=== PATIENT | female | born 1995 | race Two or more races ===

== ENCOUNTER 2023-06-02 11:58 | Emergency (ER) | payer OTHER, SELFPAY ==
--- NOTE | 2023-06-02 12:02 | ED.CHESTPAIN ---
HPI - Chest Pain General Chief Complaint: Chest Pain Stated Complaint: Chest Pain x 1 Day Time Seen by Provider: 06/02/23 14:46 Source: patient and family ( Mother.) Mode of arrival: ambulatory Limitations: no limitations History of Present Illness HPI narrative: 27-year-old female history of spina bifida came in for evaluation of chest pain. Chest pain started since yesterday more than 24 hours ago pain is localized to the left sternal border, no radiation, pain described as intermittent common goes, no clear aggravating factor or relieving factor, pain is 10/10 when it comes, no association with movement or taking a deep breath. No fever, no chills. No coughing, no history of chest trauma, no SOB, no fever, chills. Related Data Allergies Allergy/AdvReac Type Severity Reaction Status Date / Time latex [LATEX] Allergy Unknown RASH Verified 06/02/23 12:05 Review of Systems Review of Systems: All other systems are reviewed and are negative Constitutional: Reports as per HPI and Reports no additional constitutional complaints Eyes: Reports as per HPI and Reports no additional eye complaints Reports system reviewed and no additional complaints, except as documented Cardiovascular: Reports as per HPI and Reports no additional cardiovascular complaints Respiratory: Reports as per HPI and Reports no additional respiratory complaints Gastrointestinal: Reports as per HPI and Reports no additional gastrointestinal complaints Genitourinary: Reports no additional female genitourinary complaints Musculoskeletal: Reports no additional musculoskeletal complaints Skin/Breast: Reports system reviewed and no additional complaints, except as docu Psychiatric: Reports no additional psychiatric complaints Endocrine: Reports no additional endocrine complaints Hematologic/Lymphatic: Reports no additional hematologic/lymphatic complaints Allergic/Immunologic: Reports no additional allergic/immunologic complaints Reports system reviewed and no additional complaints, except as documented and Reports Abnormal speech present [facility] Social History Social History Advance Directives: No Physical Exam Vital Signs: Vital Signs: Last Vital Signs Temp 98.8 F 06/02/23 12:03 Pulse 84 06/02/23 12:03 Resp 18 06/02/23 12:03 BP 142/94 H 06/02/23 12:03 Pulse Ox 100 06/02/23 12:03 O2 Del Method Room Air 06/02/23 12:03 BMI result Body Mass Index 26.8 Vital signs have been reviewed and appear to be correct. Blood pressure elevated. Heart rate normal. Respiratory rate normal. Temperature normal. Oxygen saturation normal. Appearance: Alert. Oriented X3. No acute distress. Head: Normal external exam. Normocephalic. Atraumatic. No [place] signs noted. No raccoon eyes noted Eyes: PERRLA. EOMI. Conjunctiva and sclera normal. Eyelids normal. ENT: TM's Normal. Pharynx normal. Uvula midline. Moist mucous membranes. No trismus noted. No drooling noted. No muffled voice noted. Neck: Normal inspection. Neck supple. FROM. No adenopathy. Thyroid Normal. No meningeal signs. No neck mass noted. CVS: Normal heart rate and rhythm. Heart sound normal. No murmurs noted. Pulses normal throughout. Respiratory: No respiratory distress. Painless inspiration. Breath sounds normal. No wheezes/rales/rhonchi noted. Reproducible tenderness over the left sternal border, no redness, no hotness, no step-off, no deformity No accessory muscle usage noted or decreased air movement noted. Abdomen: Soft and nontender. Bowel sounds normal in all 4 quadrants. No distention noted. No organomegaly noted. No visible injury noted. Back: No CVA tenderness. Full range of motion noted. Skin: Skin warm and dry. Normal skin color. Normal skin turgor. No rashes/lesions/lacerations noted. Extremities: No lower extremity edema. Extremities exhibit normal range of motion. Extremities nontender. Neuro: Oriented X 3. Cranial nerve exam: II-XII are grossly intact No motor deficit. No sensory deficit. Reflexes normal. Course Course Course Narrative: This is an RME: Additional HPI, ROS, PE not included below will be deferred to primary provider. Patient is a 27-year-old female past medical history of spina bifida, hydrocephalus with shunt, presenting to emergency department complaining of midsternal chest pain intermittnetly x 1 day. Pain typically lasts a few hours and then improves. Denies headache, dyspnea, shortness of breath, nausea, vomiting, abdominal pain, numbness or tingling of the extremities. Plan: labs, EKG Reevaluation(s) Reevaluation #1: patient with unremarkable physical exam, EKG/ chest x-ray is also unremarkable with negative troponin physical exam is more consistent with costochondritis. Time: 14:55 Medical Decision Making Differential Diagnosis Differential Diagnoses: The differential diagnosis associated with the presentation includes ( ACS, pulmonary embolism, costochondritis, pleural effusion, pneumothorax , electrolyte abnormality, severe anemia.) Admission/Observation Consideration of admission/observation: Escalation of care including admission/observation considered Lab Data MDM Lab Attestation statement: I reviewed the patient's lab results. 06/02/23 12:22 06/02/23 12:22 Labs: Lab Results 06/02/23 Range/Units 12:22 WBC 6.7 (4.8-10.8) X10*3/uL RBC 4.24 (4.20-5.50) X10*6/uL Hgb 11.4 L (12.0-16.0) g/dl Hct 34.8 L (37.0-47.0) % MCV 82.1 (80.0-98.0) fL MCH 26.9 L (27.0-33.0) pg MCHC 32.8 (31.0-35.0) g/dl RDW 13.8 (11.0-16.0) % Plt Count 279 (160-400) X10*3/uL MPV 11.2 (9.4-12.3) fL Immature Gran % (Auto) 0.4 (0.0-0.4) % Neut % (Auto) 75.3 H (45-73) % Lymph % (Auto) 18.4 L (20-40) % [place] % (Auto) 4.6 (2-11) % Eos % (Auto) 1.0 (0-4) % Baso % (Auto) 0.3 (0-2) % Lymph # (Auto) 1.2 (1.2-4.9) X10*3/uL [place] # (Auto) 0.3 (0.1-1.2) X10*3/uL Eos # (Auto) 0.1 (0.0-0.4) X10*3/uL Baso # (Auto) 0.0 (0.0-0.2) X10*3/uL Abs Immat Gran (auto) 0.03 (0.00-0.03) X10*3/uL Absolute Neuts (auto) 5.0 (2.0-8.3) x10*3/uL Absolute Nucleated RBC 0.000 (0.0-0.012) X10*3/uL Nucleated RBC % (auto) 0.0 (0.0-0.2) /100WBC Sodium 142 (135-145) mmol/L Potassium 3.8 (3.3-5.1) mmol/L Chloride 112 H (96-108) mmol/L Carbon Dioxide 22 (22-29) mmol/L Anion Gap 12 (12-20) BUN 16 (9-16) mg/dL Creatinine 1.11 (0.5-1.4) mg/dL Estim Creat Clear Calc 31.5 Estimated GFR 58 Random Glucose 80 (60-115) mg/dL Calcium 9.6 (8.4-10.2) mg/dL Magnesium 2.0 (1.6-2.6) mg/dL Total Bilirubin 0.5 (0.0-1.0) mg/dL AST 11 (5-31) U/L ALT 5 (0-31) U/L Alkaline Phosphatase 75 (39-117) U/L Troponin I High Sens < 2.7 (<3.5-17.0) ng/L Total Protein 7.6 (6.5-8.0) g/dL Albumin 4.0 (3.5-5.0) g/dL Lipase 52 (8-78) U/L COVID-19 (GLENNY) Negative (Negative) COVID-19 Clin Com See Note Influenza Type A (JEAN-CLAUDE) Negative (Negative) Influenza Type B (JEAN-CLAUDE) Negative (Negative) Influenza A & B Note See Note Independent Interpretation I performed an independent interpretation of an: EKG ( Normal sinus rhythm at 81 beats per minutes, normal intervals, normal axis deviation, no ST-T changes.) and Plain X-Ray ( Chest: No acute intrathoracic pathology.) Radiology Impression Discussion of test interpretation with radiology: I have reviewed the radiologist's reading. Discharge Plan Discharge Clinical Impression: Atypical chest pain, Acute costochondritis Patient Disposition: Home, Self-Care Instructions: Chest Wall Pain (ED), Costochondritis (ED) Additional Instructions: take ibuprofen 200 mg tablets [id number] every 6 hours if needed for pain.
[2023-06-02 12:03] VITALS: BP 142/94; PULSE 84; RESP 18; TEMP 37.1; O2SAT 100; BMI 26.8
[2023-06-02 14:52] VITALS: BP 135/94; PULSE 81; RESP 16; TEMP 37.2; O2SAT 100
== END 2023-06-02 15:17 | disposition home or self-care (01) ==
PROVIDERS: Emergency Provider Emergency Medicine
DX: R07.89 Other chest pain (principal); M94.0 Chondrocostal junction syndrome [Tietze]; Z11.52 Encounter for screening for COVID-19
CPT/HCPCS: 71046; 80053; 83690; 83735; 84484; 85025; 87502; 87635; 93005; 99283; 99285